=== PATIENT | female | born 1995 | race Caucasian/White ===

== ENCOUNTER 2017-09-27 02:00 | Inpatient (IN) | payer MEDICAID ==
[2017-09-27] MEDS ORDERED: METHYLERGONOVINE 0.2 MG INJ IM ×2 (03:30→14:00)
[2017-09-27] MEDS ORDERED: CARBOPROST 250 MCG INJ IM ×2 (03:30→14:00)
[2017-09-27] MEDS ORDERED: OXYTOCIN 30 UNITS/LR 500 ML IV ×2 (03:30→14:00)
[2017-09-27] MEDS ORDERED: CEFAZOLIN 2 GM/50 ML (PMX) 50 ML IV (03:30)
[2017-09-27] MEDS ORDERED: MISOPROSTOL 200 MCG TAB PR ×2 (03:30→14:00)
[2017-09-27] MEDS: LACTATED RINGER'S 1,000 ML IV ×5 (04:17→21:45)
[2017-09-27 04:38] LABS: ADD MAN DIFF? NO
[2017-09-27 04:40] LABS: BASOPHIL # 0.1 10^3/ul (0.0-0.1); EOSINOPHILS # 0.1 10^3/ul (0.0-0.5); EOSINOPHILS % 1.1 % (0.0-7.0); HEMATOCRIT 39.8 % (37.0-47.0); HEMOGLOBIN 13.6 g/dl (12.0-16.0); LYMPHOCYTES # 2.9 10^3/ul (0.8-2.9); LYMPHOCYTES % 30.2 % (15.0-51.0); MEAN CORPUSCULAR HEMOGLOBIN 32.5 pg (29.0-33.0); MEAN CORPUSCULAR HGB CONC 34.2 g/dl (32.0-37.0); MEAN PLATELET VOLUME 10.4 fl (7.4-10.4); MONOCYTE # 0.7 10^3/ul (0.3-0.9); MONOCYTES % 7.3 % (0.0-11.0); NEUTROPHIL # 5.6 10^3/ul (1.6-7.5); NEUTROPHILS % 59.2 % (39.0-77.0); PLATELET COUNT 310 10^3/UL (140-415); RED BLOOD COUNT 4.19 10^6/ul (4.20-5.40); RED CELL DISTRIBUTION WIDTH 13.1 % (11.5-14.5)
[2017-09-27 04:40] LABS: WHITE BLOOD COUNT 9.4 10^3/ul (4.8-10.8)
[2017-09-27 04:59] LABS: PROTIME 12.2 Sec (11.9-14.9)
[2017-09-27 05:00] LABS: PARTIAL THROMBOPLASTIN TIME 28.6 Sec (25.0-35.0)
[2017-09-27 05:04] LABS: AMPHETAMINE/METHAMPHETAMINE Negative (NEGATIVE); BARBITURATES Negative (NEGATIVE); BENZODIAZEPINES Negative (NEGATIVE); CANNABINOIDS Negative (NEGATIVE); COCAINE Negative (NEGATIVE); OPIATES Negative (NEGATIVE)
[2017-09-27] MEDS: TERBUTALINE 1 MG/ML INJ SC (05:52)
[2017-09-27 06:00] LABS: HEPATITIS B SURFACE ANTIGEN NEGATIVE (NEGATIVE)
[2017-09-27 06:13] LABS: HIV 1&2 ANTIBODY NEGATIVE (NEGATIVE)
[2017-09-27] MEDS ORDERED: OXYTOCIN 30 UNITS/LR 500 ML BAG IV (07:00)
[2017-09-27 07:45] LABS: ALANINE AMINOTRANSFERASE 14 IU/L (13-69); ALBUMIN 3.5 g/dl (3.3-4.9); ALBUMIN/GLOBULIN RATIO 1.12; ALKALINE PHOSPHATASE 165 IU/L (42-121); ANION GAP 16 (8-16); ASPARTATE AMINO TRANSFERASE 17 IU/L (15-46); BILIRUBIN,INDIRECT 0.4 mg/dl (0-1.1); BILIRUBIN,TOTAL 0.4 mg/dl (0.2-1.3); BLOOD UREA NITROGEN 15 mg/dl (7-20); CALCIUM 9.2 mg/dl (8.4-10.2); CARBON DIOXIDE 17 mmol/L (21-31); CHLORIDE 110 mmol/L (97-110); CREATININE 0.54 mg/dl (0.44-1.00); GLUCOSE 78 mg/dl (70-220); POTASSIUM 4.4 mmol/L (3.5-5.1); SODIUM 139 mmol/L (135-144); TOTAL PROTEIN 6.6 g/dl (6.1-8.1)
[2017-09-27] MEDS ORDERED: CITRIC ACID/SODIUM CITRATE 15 ML CUP (07:56)
[2017-09-27] MEDS ORDERED: ONDANSETRON 4 MG INJ ×2 (07:56→12:43)
[2017-09-27] MEDS: CITRIC ACID/SODIUM CITRATE 15 ML CUP PO (11:46)
[2017-09-27] MEDS: ONDANSETRON 4 MG INJ IV (11:47)
[2017-09-27] MEDS ORDERED: PHENYLephrine (100 MCG/ML) 5ML SYG ×2 (12:03→12:50)
[2017-09-27] MEDS ORDERED: OXYTOCIN 10 UNIT INJ (12:03)
[2017-09-27] MEDS ORDERED: BUPIVACAINE 0.75%/DEXT (SPINAL) 2 ML INJ (12:03)
[2017-09-27] MEDS ORDERED: morphine SULFATE/PF (10 MG/10 ML) INJ (12:03)
[2017-09-27] MEDS ORDERED: KETOROLAC 30 MG INJ (12:43)
[2017-09-27] MEDS ORDERED: METOCLOPRAMIDE 10 MG INJ (12:43)
[2017-09-27] MEDS ORDERED: DEXAMETHASONE 4 MG/ML 1 ML INJ (12:44)
[2017-09-27] MEDS ORDERED: FENTAnyl 50 MCG/ML VIAL (12:52)
[2017-09-27] MEDS ORDERED: ACETAMINOPHEN 325 MG TAB PO (14:00)
[2017-09-27] MEDS ORDERED: CEFAZOLIN 1 GM/50 ML (PMX) 50 ML IV (14:00)
[2017-09-27] MEDS ORDERED: ONDANSETRON 4 MG INJ IV ×2 (14:00→14:30)
[2017-09-27] MEDS ORDERED: BISACODYL 10 MG SUPP PR (14:00)
[2017-09-27] MEDS ORDERED: OXYCODONE/ACETAMINOPHEN (5/325) TAB PO ×2 (14:00)
[2017-09-27] MEDS ORDERED: NALBUPHINE HCL (10 MG/1 ML) INJ IV (14:30)
[2017-09-27] MEDS ORDERED: HYDROmorphONE 0.5 MG/0.5 ML SYG IV ×2 (14:30)
[2017-09-27] MEDS ORDERED: HYDROCODONE/APAP (5/325) TAB PO (14:30)
[2017-09-27] MEDS ORDERED: NALOXONE (0.4 MG/ML) INJ IV (14:30)
[2017-09-27] MEDS ORDERED: DIPHENHYDRAMINE 50 MG INJ IV (14:30)
[2017-09-27] MEDS ORDERED: morphine 2 MG INJ IV ×2 (14:30)
[2017-09-27] MEDS: OXYTOCIN 30 UNITS/LR 500 ML IV ×2 (14:52→17:17)
[2017-09-27 17:40] LABS: RAPID PLASMA REAGIN NONREACTIVE (NR)
[2017-09-27] MEDS: CEFAZOLIN 1 GM/50 ML (PMX) 50 ML IV (20:14)
[2017-09-28] MEDS: KETOROLAC 30 MG INJ IV ×2 (00:45→09:28)
[2017-09-28] MEDS: LACTATED RINGER'S 1,000 ML IV (00:46)
[2017-09-28] MEDS: CEFAZOLIN 1 GM/50 ML (PMX) 50 ML IV ×2 (03:53→11:44)
[2017-09-28 07:10] LABS: ADD MAN DIFF? NO
[2017-09-28 07:15] LABS: WHITE BLOOD COUNT 11.8 10^3/ul (4.8-10.8)
[2017-09-28 07:15] LABS: BASOPHILS % 0.3 % (0.0-2.0); EOSINOPHILS % 0.3 % (0.0-7.0); HEMATOCRIT 32.4 % (37.0-47.0); HEMOGLOBIN 10.9 g/dl (12.0-16.0); LYMPHOCYTES # 2.7 10^3/ul (0.8-2.9); LYMPHOCYTES % 22.8 % (15.0-51.0); MEAN CORPUSCULAR HEMOGLOBIN 32.2 pg (29.0-33.0); MEAN CORPUSCULAR HGB CONC 33.6 g/dl (32.0-37.0); MEAN CORPUSCULAR VOLUME 95.6 fl (82.0-101.0); MEAN PLATELET VOLUME 10.7 fl (7.4-10.4); MONOCYTES % 8.2 % (0.0-11.0); NEUTROPHILS % 67.9 % (39.0-77.0); PLATELET COUNT 284 10^3/UL (140-415); RED BLOOD COUNT 3.39 10^6/ul (4.20-5.40); RED CELL DISTRIBUTION WIDTH 13.1 % (11.5-14.5)
[2017-09-28 07:42] LABS: ALANINE AMINOTRANSFERASE 21 IU/L (13-69); ALBUMIN 2.5 g/dl (3.3-4.9); ALBUMIN/GLOBULIN RATIO 0.96; ALKALINE PHOSPHATASE 102 IU/L (42-121); ANION GAP 11 (8-16); ASPARTATE AMINO TRANSFERASE 25 IU/L (15-46); BILIRUBIN,INDIRECT 0.6 mg/dl (0-1.1); BILIRUBIN,TOTAL 0.6 mg/dl (0.2-1.3); BLOOD UREA NITROGEN 8 mg/dl (7-20); CALCIUM 8.2 mg/dl (8.4-10.2); CARBON DIOXIDE 23 mmol/L (21-31); CHLORIDE 105 mmol/L (97-110); CREATININE 0.51 mg/dl (0.44-1.00); GLUCOSE 55 mg/dl (70-220); SODIUM 135 mmol/L (135-144); TOTAL PROTEIN 5.1 g/dl (6.1-8.1)
[2017-09-28] MEDS: MAGNESIUM HYDROXIDE 30ML CUP PO (09:27)
[2017-09-28] MEDS: SENNA/DOCUSATE NA (8.6MG/50MG) TAB PO ×2 (09:27→21:44)
[2017-09-28] MEDS: LANOLIN 7 GM TUBE TOP (09:27)
[2017-09-28] MEDS: IBUPROFEN 600 MG TAB PO ×2 (17:25→23:55)
[2017-09-28] MEDS: ACETAMINOPHEN 500 MG TAB PO (21:48)
[2017-09-29] MEDS: IBUPROFEN 600 MG TAB PO ×3 (05:51→17:22)
[2017-09-29] MEDS: SENNA/DOCUSATE NA (8.6MG/50MG) TAB PO ×2 (09:42→21:27)
[2017-09-29 11:21] LABS: RUBELLA ANTIBODY - IGG 4.54 index
[2017-09-29] MEDS: LANOLIN 7 GM TUBE TOP (21:27)
[2017-09-30] MEDS: IBUPROFEN 600 MG TAB PO ×4 (00:18→17:42)
[2017-09-30] MEDS: ACETAMINOPHEN 500 MG TAB PO (01:37)
[2017-09-30] MEDS: SENNA/DOCUSATE NA (8.6MG/50MG) TAB PO (10:22)
[2017-10-02 12:58] LABS: RUBELLA ANTIBODY - IGM <20.00 AU/mL
== END 2017-09-30 19:21 | disposition home or self-care (01) | DRG 766 ==
LOC: OBT 02:00 → L-D 02:00 → OBT 03:30 → L-D 03:30 → PP1 16:28 → L-D 16:29 → PP1 17:10
PROVIDERS: Obstetrics & Gynecology Obstetrics
PROC: 10D00Z1 Extraction of Products of Conception, Low, Open Approach (ICD-10-PCS; principal; 2017-09-27)
PROC: 3E033VJ Introduction of Other Hormone into Peripheral Vein, Percutaneous Approach (ICD-10-PCS; 2017-09-27)
DX: O34.211 Maternal care for low transverse scar from previous cesarean delivery (principal); Z3A.38 38 weeks gestation of pregnancy; Z37.0 Single live birth
CPT/HCPCS: 76815; 76818; 80053; 80307; 85025; 85610; 85730; 86592; 86703; 86762; 86850; 86900; 86901; 87340; 88307; 94760; 99464